=== PATIENT | male | born 1970 | race African-American/Black ===

== ENCOUNTER 2020-10-16 14:29 | Emergency (ER) | payer MEDICAID ==
[~2020-10-16] VITALS: Ht 182.9 cm; Wt 127.5 kg
[2020-10-16 15:14] VITALS: BP 133/89
--- NOTE | 2020-10-16 15:16 | NUR ---
pt stated that he has been having a pain under his left arm left side of ribs for a week now. states sometimes it radiates up to the middle of his chest. pt states he has a hx of CHF.
[2020-10-16 15:21] LABS: APPEARANCE,URINE CLEAR; BILIRUBIN, URINE NEGATIVE (NEGATIVE); COLOR,URINE AMBER; GLUCOSE, URINE (UA) NEGATIVE (NEGATIVE); KETONES,URINE NEGATIVE (NEGATIVE); LEUKOCYTE ESTERASE ,URINE 1+ (NEGATIVE); NITRITE,URINE NEGATIVE (NEGATIVE); PH,URINE 5 (4.5-8.0); PROTEIN,URINE NEGATIVE (NEGATIVE); UROBILINOGEN,URINE 1 MG/DL (0.0-1.0)
--- NOTE | 2020-10-16 15:24 | Emergency Room Report ---
History of Present Illness General Chief Complaint: Pain Source: Patient Present Illness HPI Patient presents with left-sided chest pain. It began after he sustained a severe sharp finding out that most of his "people" were murdered about 10 days ago. He was using THC which seemed to make things worse. He felt stressed and scared. He stopped using THC 2 days ago and this is improved his symptoms. Pain is rated 3/10 in the left ribs. The patient denies exposure to Covid positive contacts. No fevers, chills, sore throat, palpitations, nausea, vomiting, diarrhea, dysuria, abdominal pain, shortness of breath, joint pain, rashes, visual changes, dizziness, headache. 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 Patient History Past Medical History: see triage record, CHF Social History: Reports: drug use - THC; Denies: smoking, alcohol use Reviewed Nursing Documentation: PMH: Agreed; PSxH: Agreed Review of Systems All Other Systems: negative except mentioned in HPI Physical Exam Vital Signs Date Time Temp Pulse Resp B/P (MAP) Pulse Ox O2 Delivery O2 Flow Rate FiO2 10/16/20 14:52 98.1 81 18 133/89 (104) 95 Room Air Sp02 EP Interpretation: reviewed, normal General Appearance: well appearing, no apparent distress, GCS 15, non-toxic Head: normocephalic Eyes: bilateral eye normal inspection, bilateral eye PERRL, bilateral eye EOMI ENT: moist mucus membranes Neck: supple Respiratory: lungs clear, normal breath sounds, other - Chest wall tenderness left Cardiovascular #1: regular rate, rhythm, no edema Cardiovascular #2: 2+ radial (R) Gastrointestinal: normal inspection, normal bowel sounds, non tender, no mass, non-distended Musculoskeletal: back normal, normal range of motion, gait/station normal Neurologic: alert, oriented x3, grossly normal Psychiatric: mood/affect normal Skin: no rash, warm/dry Medical Decision Making Diagnostic Impression: Primary Impression: Atypical chest pain Additional Impressions: History of CHF (congestive heart failure) Grief reaction ER Course Patient with history of congestive heart failure presents with left-sided chest pain brought on by stress. Differential includes acute myocardial infarction, costochondritis, stress, pneumothorax, pulmonary embolus amongst others. Based on history, vital signs and exam pulmonary was much less likely. Evaluation with EKG, chest x-ray and labs. Patient denies pain at this time and therefore analgesia not indicated. Aspirin will be administered after review of med recon. Sinus rhythm with PVC with left atrial enlargement. Chest x-ray with cardiomegaly but no congestive heart failure, poor inspiration. Labs remarkable for renal insufficiency but otherwise normal. Normal troponin. Patient states he has 0/10 pain at this time. Discussed findings with patient and treatment plan. No medical emergency at this time. Patient stable for outpatient observation and treatment. Laboratory Tests Test 10/16/20 15:05 10/16/20 15:45 White Blood Count 7.4 K/UL (4.8-10.8) Red Blood Count 4.41 M/UL (4.70-6.10) L Hemoglobin 14.0 G/DL (14.2-18.0) L Hematocrit 40.9 % (42.0-52.0) L Mean Corpuscular Volume 93 FL (80-99) Mean Corpuscular Hemoglobin 31.9 PG (27.0-31.0) H Mean Corpuscular Hemoglobin Concent 34.3 G/DL (32.0-36.0) Red Cell Distribution Width 12.4 % (11.6-14.8) Platelet Count 224 K/UL (150-450) Mean Platelet Volume 9.3 FL (6.5-10.1) Neutrophils (%) (Auto) 66.7 % (45.0-75.0) Lymphocytes (%) (Auto) 18.3 % (20.0-45.0) L Monocytes (%) (Auto) 7.9 % (1.0-10.0) Eosinophils (%) (Auto) 5.3 % (0.0-3.0) H Basophils (%) (Auto) 1.9 % (0.0-2.0) Prothrombin Time 11.1 SEC (9.30-11.50) Prothrombin Time INR 1.0 (0.9-1.1) Activated Partial Thromboplast Time 26 SEC (23-33) Urine Color Farhana Urine Appearance Clear Urine pH 5 (4.5-8.0) Urine Specific [place] 1.020 (1.005-1.035) Urine Protein Negative (NEGATIVE) Urine Glucose (UA) Negative (NEGATIVE) Urine Ketones Negative (NEGATIVE) Urine Blood Negative (NEGATIVE) Urine Nitrite Negative (NEGATIVE) Urine Bilirubin Negative (NEGATIVE) Urine Ictotest Negative (NEGATIVE) Urine Urobilinogen 1 MG/DL (0.0-1.0) H Urine Leukocyte Esterase 1+ (NEGATIVE) H Urine RBC 0 /HPF (0 - 0) Urine WBC 2-4 /HPF (0 - 0) Urine Squamous Epithelial Cells Occasional /LPF Urine Bacteria Few /HPF (NONE) Sodium Level 139 MMOL/L (136-145) Potassium Level 3.9 MMOL/L (3.5-5.1) Chloride Level 103 MMOL/L (98-107) Carbon Dioxide Level 27 MMOL/L (21-32) Anion Gap 10 mmol/L (5-15) Blood Urea Nitrogen 23 mg/dL (7-18) H Creatinine 1.6 MG/DL (0.55-1.30) H Estimated Glomerular Filtration Rate 55.8 mL/min (>60) Glucose Level 88 MG/DL (74-106) Calcium Level 9.8 MG/DL (8.5-10.1) Total Bilirubin 0.4 MG/DL (0.2-1.0) Aspartate Amino Transferase (AST) 19 U/L (15-37) Alanine Aminotransferase (ALT) 37 U/L (12-78) Alkaline Phosphatase 56 U/L (46-116) Total Creatine Kinase 84 U/L (26-308) Troponin I 0.031 ng/mL (0.000-0.056) Pro-B-Type Natriuretic Peptide 597 pg/mL (0-125) H Total Protein 7.4 G/DL (6.4-8.2) Albumin 3.7 G/DL (3.4-5.0) Globulin 3.7 g/dL Albumin/Globulin Ratio 1.0 (1.0-2.7) EKG Diagnostic Results Rate: normal Rhythm: NSR ST Segments: no acute changes Rhythm Strip Diag. Results EP Interpretation: yes Rhythm: NSR, other - PVC and rate 83 Chest X-Ray Diagnostic Results Chest X-Ray Diagnostic Results : Chest X-Ray Ordered: Yes # of Views/Limited/Complete: 1 View Indication: Chest Pain EP Interpretation: Yes Interpretation: no consolidation, no effusion, no pneumothorax Impression: No acute disease Electronically Signed by: Electronically signed by Lorne Bravo MD Last Vital Signs Date Time Temp Pulse Resp B/P (MAP) Pulse Ox O2 Delivery O2 Flow Rate FiO2 10/16/20 17:28 97.0 70 18 105/77 96 10/16/20 15:14 Room Air Status: improved Disposition: HOME, SELF-CARE Condition: Stable Scripts Acetaminophen (Tylenol) 325 Mg Tablet 650 MG ORAL Q6H PRN for Prn Pain/Headache/Temp > 101, #30 TAB 0 Refills Prov: Lorne Bravo MD 10/16/20 Lorne Bravo MD Oct 16, 2020 15:24
[2020-10-16 15:26] LABS: BASOPHILS % (AUTO) 1.9 % (0.0-2.0); EOSINOPHILS % (AUTO) 5.3 % (0.0-3.0); HEMATOCRIT 40.9 % (42.0-52.0); LYMPHOCYTES % (AUTO) 18.3 % (20.0-45.0); MEAN CORPUSCULAR VOLUME 93 FL (80-99); MONOCYTES % (AUTO) 7.9 % (1.0-10.0); NEUTROPHILS % (AUTO) 66.7 % (45.0-75.0); PLATELET COUNT 224 K/UL (150-450); RED BLOOD COUNT 4.41 M/UL (4.70-6.10); RED CELL DISTRIBUTION WIDTH 12.4 % (11.6-14.8); WHITE BLOOD COUNT 7.4 K/UL (4.8-10.8)
[2020-10-16] MEDS ORDERED: ASPIRIN81 MG ORAL (16:09)
[2020-10-16] MEDS ORDERED: CARVEDILOL25 MG ORAL (16:09)
[2020-10-16] MEDS ORDERED: LISINOPRIL20 MG ORAL (16:09)
[2020-10-16] MEDS ORDERED: SPIRONOLACTONE25 MG ORAL (16:09)
[2020-10-16] MEDS ORDERED: ONE DAILY FOR1 EAC1 ORAL (16:09)
[2020-10-16] MEDS ORDERED: FUROSEMIDE40 MG ORAL (16:09)
[2020-10-16 16:16] VITALS: BP 116/83
[2020-10-16 16:53] LABS: ANION GAP 10 mmol/L (5-15); BLOOD UREA NITROGEN 23 mg/dL (7-18); CALCIUM 9.8 MG/DL (8.5-10.1); CARBON DIOXIDE 27 MMOL/L (21-32); CHLORIDE 103 MMOL/L (98-107); CREATININE 1.6 MG/DL (0.55-1.30); POTASSIUM 3.9 MMOL/L (3.5-5.1); SODIUM 139 MMOL/L (136-145)
[2020-10-16 17:04] LABS: ALANINE AMINOTRANSFERASE 37 U/L (12-78); ALBUMIN 3.7 G/DL (3.4-5.0); ALKALINE PHOSPHATASE 56 U/L (46-116); ASPARTATE AMINO TRANSFERASE 19 U/L (15-37); BILIRUBIN,TOTAL 0.4 MG/DL (0.2-1.0); CREATINE KINASE 84 U/L (26-308)
[2020-10-16] MEDS ORDERED: TYLENOL325 MG ORAL (17:26)
[2020-10-16 17:28] VITALS: BP 105/77
--- NOTE | 2020-10-17 13:17 | Diagnostic Imaging Report ---
Procedure: XRAY Chest 1v Reason for study: Chest pain. Comparison films: None. FINDINGS: A single one view chest is obtained. Vascularity is normal. The lung serrano are clear bilaterally. Cardiac and mediastinal silhouette are within normal limits. CP angles are sharp. The bony thorax appear unremarkable. IMPRESSION: NO ACUTE CARDIOPULMONARY DISEASE.
--- NOTE | 2020-10-17 19:17 | Cardiology Report ---
APPROVED REPORT EKG Measurement Heart [id number] OR [id number] <Conclusion> Sinus rhythm with occasional premature ventricular complexes Possible Left atrial enlargement Left ventricular hypertrophy Abnormal ECG
== END 2020-10-16 17:37 | disposition home or self-care (01) ==
LOC: EMR 15:33
DX: R07.89 Other chest pain (principal); I50.9 Heart failure, unspecified; F43.20 Adjustment disorder, unspecified; F12.90 Cannabis use, unspecified, uncomplicated
CPT/HCPCS: 36415; 71045; 80053; 81003; 82550; 83880; 84484; 85025; 85610; 85730; 93005; Z7502; 99284